=== PATIENT | female | born 1985 | race Two or more races ===

== ENCOUNTER 2017-06-12 05:36 | Emergency (ER) | payer MEDICARE, MEDICAID ==
[~2017-06-12] VITALS: Ht 165.1 cm; Wt 55.0 kg
[2017-06-12] MEDS ORDERED: ONDANSETRON HCL 4MG/2ML VIAL IV STA (06:27)
[2017-06-12] MEDS ORDERED: DICYCLOMINE 10 MG/5 ML ORAL SYR PO STA (06:27)
[2017-06-12] MEDS ORDERED: MAGNESIUM/ALUMINUM HYDROXIDE/SIMETHICONE 30ML UDC PO STA (06:27)
[2017-06-12] MEDS ORDERED: KETOROLAC 30MG/ML VIAL IV STA (06:27)
[2017-06-12] MEDS ORDERED: VISCOUS LIDOCAINE 2% 15 ML UDC PO STA (06:27)
[2017-06-12 06:50] LABS: CLARITY URINE CLEAR (CLEAR); COLOR URINE YELLOW (YELLOW); GLUCOSE URINE NEGATIVE (NEGATIVE); KETONES URINE NEGATIVE (NEGATIVE); LEUKOCYTE ESTERASE URINE NEGATIVE (NEGATIVE); NITRITE URINE NEGATIVE (NEGATIVE); OCCULT BLOOD URINE NEGATIVE (NEGATIVE); PROTEIN URINE NEGATIVE (NEGATIVE); SPECIFIC GRAVITY URINE 1.013 (1.005-1.030); UROBILINOGEN URINE 0.2 E.U./dL (0.2-1.0)
[2017-06-12 07:19] LABS: BASOPHILS % 0.3 % (0.0-2.0); EOSINOPHILS % 2.8 % (0.0-5.0); HEMATOCRIT. 32.3 % (36.0-48.0); HEMOGLOBIN. 11.2 g/dL (12.0-16.0); LYMPHOCYTES % 33.8 % (20.0-50.0); MEAN CORPUSCULAR HEMOGLOBIN 30.9 pg (28.0-32.0); MEAN CORPUSCULAR VOLUME 89.6 fL (81.0-99.0); MEAN PLATELET VOLUME 6.6 fl (7.4-10.4); MONOCYTES % 6.3 % (2.0-8.0); NEUTROPHILS % 56.8 % (40.0-76.0); PLATELET 183 x1000/uL (130-400); RED BLOOD CELL COUNT 3.61 mill/uL (4.2-5.4); RED CELL DISTRIBUTION WIDTH 15.7 % (11.6-14.6)
[2017-06-12 07:33] LABS: CARBON DIOXIDE 28 mEq/L (21-32); CHLORIDE 108 mEq/L (98-107)
[2017-06-12 07:36] LABS: INR 1.1; PROTHROMBIN TIME 11.3 sec (9.4-11.6)
[2017-06-12 07:57] LABS: HCG SCREEN NEGATIVE
[2017-06-12] MEDS ORDERED: MORPHINE SULFATE 4 MG/ML CPJ (NOT FOR IM USE) IV ONE (08:00)
[2017-06-12] MEDS ORDERED: MORPHINE SULFATE 10 MG/ML CPJ IV NR (08:30)
[2017-06-12] MEDS ORDERED: FAMOTIDINE 20MG/2ML VIAL IV ONE (08:30)
[2017-06-12] MEDS ORDERED: DIPHENHYDRAMINE 50MG/ML VIAL IV ONE (09:00)
[2017-06-12 09:45] VITALS: BP 105/69
== END 2017-06-12 09:49 | disposition home or self-care (01) ==
LOC: ER 05:36
DX: K21.9 Gastro-esophageal reflux disease without esophagitis (principal); M25.572 Pain in left ankle and joints of left foot; M25.571 Pain in right ankle and joints of right foot; G43.909 Migraine, unspecified, not intractable, without status migrainosus; Z88.6 Allergy status to analgesic agent; Z88.2 Allergy status to sulfonamides; Z88.8 Allergy status to other drugs, medicaments and biological substances
CPT/HCPCS: 36415; 80053; 81003; 83690; 84703; 85025; 85610; 96374; 96375; 99284; J1200; J1885; J2270; J2405; J3490

== ENCOUNTER 2017-06-14 06:44 | Emergency (ER) | payer MEDICARE, MEDICAID ==
[~2017-06-14] VITALS: Ht 165.1 cm; Wt 50.0 kg
[2017-06-14] MEDS ORDERED: MORPHINE SULFATE 4 MG/ML CPJ (NOT FOR IM USE) IV STA (07:11)
[2017-06-14] MEDS ORDERED: SODIUM CHLORIDE 0.9% 1,000 ML IV ONE (07:11)
[2017-06-14] MEDS ORDERED: ONDANSETRON HCL 4MG/2ML VIAL IV STA (07:11)
[2017-06-14] MEDS ORDERED: MORPHINE SULFATE 10 MG/ML CPJ IV NR (07:45)
[2017-06-14 07:58] LABS: CLARITY URINE CLEAR (CLEAR); COLOR URINE YELLOW (YELLOW); GLUCOSE URINE NEGATIVE (NEGATIVE); KETONES URINE NEGATIVE (NEGATIVE); LEUKOCYTE ESTERASE URINE NEGATIVE (NEGATIVE); NITRITE URINE NEGATIVE (NEGATIVE); OCCULT BLOOD URINE NEGATIVE (NEGATIVE); PH URINE 5.5 (4.5-8.0); PROTEIN URINE NEGATIVE (NEGATIVE); SPECIFIC GRAVITY URINE 1.021 (1.005-1.030); UROBILINOGEN URINE 0.2 E.U./dL (0.2-1.0)
[2017-06-14] MEDS ORDERED: DIPHENHYDRAMINE 50MG/ML VIAL IV ONE (08:00)
[2017-06-14] MEDS ORDERED: FAMOTIDINE 20MG/2ML VIAL IV ONE (08:00)
[2017-06-14 08:08] LABS: BASOPHILS % 0.5 % (0.0-2.0); EOSINOPHILS % 3.8 % (0.0-5.0); HEMATOCRIT. 32.6 % (36.0-48.0); HEMOGLOBIN. 11.1 g/dL (12.0-16.0); LYMPHOCYTES % 34.9 % (20.0-50.0); MEAN CORPUSCULAR HEMOGLOBIN 30.6 pg (28.0-32.0); MEAN CORPUSCULAR VOLUME 89.9 fL (81.0-99.0); MEAN PLATELET VOLUME 6.8 fl (7.4-10.4); MONOCYTES % 6.6 % (2.0-8.0); NEUTROPHILS % 54.2 % (40.0-76.0); PLATELET 193 x1000/uL (130-400); RED BLOOD CELL COUNT 3.62 mill/uL (4.2-5.4); RED CELL DISTRIBUTION WIDTH 16.2 % (11.6-14.6)
[2017-06-14 08:16] LABS: INR 1.1; PARTIAL THROMBOPLASTIN TIME 25.2 sec (23.4-31.0); PROTHROMBIN TIME 10.9 sec (9.4-11.6)
[2017-06-14 08:28] LABS: HCG SCREEN NEGATIVE
[2017-06-14 08:33] LABS: CARBON DIOXIDE 26 mEq/L (21-32); CHLORIDE 108 mEq/L (98-107)
[2017-06-14 09:30] VITALS: BP 110/68
[2017-06-14] MEDS ORDERED: TRAMADOL 50MG TABLET PO ONE (09:30)
== END 2017-06-14 09:49 | disposition left against medical advice (07) ==
LOC: ER 07:15
DX: R10.9 Unspecified abdominal pain (principal); G43.909 Migraine, unspecified, not intractable, without status migrainosus; Z88.6 Allergy status to analgesic agent; Z88.2 Allergy status to sulfonamides; Z88.8 Allergy status to other drugs, medicaments and biological substances
CPT/HCPCS: 36415; 71010; 74176; 80053; 81003; 83690; 84703; 85025; 85610; 85730; 86850; 86900; 86901; 93005; 96361; 96374; 96375; 99285; J1200; J2270; J2405; J3490; J7030

== ENCOUNTER 2017-12-22 18:32 | Emergency (ER) | payer MEDICARE, MEDICAID ==
[~2017-12-22] VITALS: Ht 162.6 cm; Wt 54.0 kg
[2017-12-22 21:38] LABS: CLARITY URINE CLEAR (CLEAR); COLOR URINE YELLOW (YELLOW); KETONES URINE NEGATIVE (NEGATIVE); LEUKOCYTE ESTERASE URINE NEGATIVE (NEGATIVE); NITRITE URINE NEGATIVE (NEGATIVE); OCCULT BLOOD URINE NEGATIVE (NEGATIVE); PH URINE 6.5 (4.5-8.0); PROTEIN URINE NEGATIVE (NEGATIVE); SPECIFIC GRAVITY URINE 1.024 (1.005-1.030); UROBILINOGEN URINE 0.2 E.U./dL (0.2-1.0)
[2017-12-22] MEDS ORDERED: KETOROLAC 30MG/ML VIAL IV STA (22:10)
[2017-12-22] MEDS ORDERED: FAMOTIDINE 20MG/2ML VIAL IV STA (22:10)
[2017-12-22] MEDS ORDERED: ONDANSETRON HCL 4MG/2ML VIAL IV STA (22:10)
[2017-12-22 23:28] LABS: EOSINOPHILS % 0.8 % (0.0-5.0); HEMATOCRIT. 35.6 % (36.0-48.0); HEMOGLOBIN. 11.9 g/dL (12.0-16.0); MEAN CORPUSCULAR HEMOGLOBIN 29.1 pg (28.0-32.0); MEAN CORPUSCULAR VOLUME 87.2 fL (81.0-99.0); MONOCYTES % 3.8 % (2.0-8.0); NEUTROPHILS % 49.4 % (40.0-76.0); PLATELET 375 x1000/uL (130-400); RED BLOOD CELL COUNT 4.08 mill/uL (4.2-5.4); RED CELL DISTRIBUTION WIDTH 18.5 % (11.6-14.6)
[2017-12-22 23:30] LABS: CHLORIDE 105 mEq/L (98-107)
[2017-12-22 23:31] LABS: PROTHROMBIN TIME 10.6 sec (9.4-11.6)
[2017-12-22] MEDS ORDERED: DIPHENHYDRAMINE 50MG/ML VIAL IM ONE (23:45)
[2017-12-23] MEDS ORDERED: MORPHINE SULFATE 10 MG/ML CPJ IM STA (00:09)
[2017-12-23] MEDS ORDERED: LORAZEPAM 2MG/ML CPJ IM ONE (03:00)
[2017-12-23 03:18] VITALS: BP 109/79
== END 2017-12-23 03:18 | disposition home or self-care (01) ==
LOC: ER 18:32
DX: R10.84 Generalized abdominal pain (principal); K59.00 Constipation, unspecified; K62.5 Hemorrhage of anus and rectum; R00.0 Tachycardia, unspecified; Z91.14 Patient's other noncompliance with medication regimen; Z90.49 Acquired absence of other specified parts of digestive tract; Z88.2 Allergy status to sulfonamides
CPT/HCPCS: 36415; 74176; 80053; 81003; 83690; 85025; 85610; 93005; 96372; 96374; 96375; 99285; J1200; J1885; J2060; J2270; J2405

== ENCOUNTER 2018-01-27 04:59 | Emergency (ER) | payer MEDICARE, MEDICAID ==
[~2018-01-27] VITALS: Ht 165.1 cm; Wt 50.0 kg
[2018-01-27] MEDS ORDERED: PANTOPRAZOLE SODIUM 40 MG/VIAL IV STA (06:07)
[2018-01-27] MEDS ORDERED: MORPHINE SULFATE 4 MG/ML CPJ (NOT FOR IM USE) IV STA (06:07)
[2018-01-27] MEDS ORDERED: ONDANSETRON HCL 4MG/2ML VIAL IV STA (06:07)
[2018-01-27] MEDS ORDERED: SODIUM CHLORIDE 0.9% 1,000 ML IV ONE (06:07)
[2018-01-27] MEDS ORDERED: DIPHENHYDRAMINE 50MG/ML VIAL IV ONE ×2 (06:45→10:30)
[2018-01-27 09:24] LABS: BASOPHILS % 0.4 % (0.0-2.0); EOSINOPHILS % 1.9 % (0.0-5.0); HEMATOCRIT. 34.4 % (36.0-48.0); HEMOGLOBIN. 11.7 g/dL (12.0-16.0); LYMPHOCYTES % 43.2 % (20.0-50.0); MEAN CORPUSCULAR VOLUME 90.9 fL (81.0-99.0); MEAN PLATELET VOLUME 6.8 fl (7.4-10.4); MONOCYTES % 4.9 % (2.0-8.0); NEUTROPHILS % 49.6 % (40.0-76.0); PLATELET 173 x1000/uL (130-400); RED BLOOD CELL COUNT 3.78 mill/uL (4.2-5.4); RED CELL DISTRIBUTION WIDTH 14.8 % (11.6-14.6)
[2018-01-27 09:27] LABS: CLARITY URINE CLEAR (CLEAR); COLOR URINE YELLOW (YELLOW); KETONES URINE NEGATIVE (NEGATIVE); LEUKOCYTE ESTERASE URINE NEGATIVE (NEGATIVE); NITRITE URINE NEGATIVE (NEGATIVE); OCCULT BLOOD URINE NEGATIVE (NEGATIVE); PH URINE 5.5 (4.5-8.0); PROTEIN URINE NEGATIVE (NEGATIVE); SPECIFIC GRAVITY URINE 1.009 (1.005-1.030); UROBILINOGEN URINE 0.2 E.U./dL (0.2-1.0)
[2018-01-27 09:30] LABS: CHLORIDE 110 mEq/L (98-107)
[2018-01-27 09:32] LABS: INR 1.1; PROTHROMBIN TIME 11.6 sec (9.4-11.6)
[2018-01-27] MEDS ORDERED: MORPHINE SULFATE 2 MG/ML CPJ (NOT FOR IM USE) IV ONE (09:45)
[2018-01-27] MEDS ORDERED: DIPHENHYDRAMINE 50MG/ML VIAL ONE (10:27)
[2018-01-27 10:40] VITALS: BP 113/90
== END 2018-01-27 11:00 | disposition home or self-care (01) ==
LOC: ER 04:59
DX: R10.13 Epigastric pain (principal); R07.89 Other chest pain; K86.1 Other chronic pancreatitis; D64.9 Anemia, unspecified; M32.9 Systemic lupus erythematosus, unspecified; G43.909 Migraine, unspecified, not intractable, without status migrainosus; Z88.2 Allergy status to sulfonamides; Z88.6 Allergy status to analgesic agent; Z90.49 Acquired absence of other specified parts of digestive tract
CPT/HCPCS: 36415; 80053; 81003; 81025; 83690; 83880; 84484; 85025; 85610; 93005; 96361; 96374; 96375; 96376; 99285; C1893; C9113; J1200; J2270; J2405; J7030

== ENCOUNTER 2018-03-13 23:24 | Emergency (ER) | payer MEDICARE, MEDICAID ==
[~2018-03-13] VITALS: Ht 165.1 cm; Wt 53.0 kg
[2018-03-14] MEDS ORDERED: ONDANSETRON HCL 4MG/2ML VIAL IV STA (02:11)
[2018-03-14] MEDS ORDERED: MAGNESIUM/ALUMINUM HYDROXIDE/SIMETHICONE 30ML UDC PO STA (02:11)
[2018-03-14] MEDS ORDERED: FAMOTIDINE 20MG/2ML VIAL IV ONE (02:15)
[2018-03-14 02:57] LABS: BASOPHILS % 0.3 % (0.0-2.0); EOSINOPHILS % 1.7 % (0.0-5.0); HEMOGLOBIN. 10.9 g/dL (12.0-16.0); LYMPHOCYTES % 55.3 % (20.0-50.0); MEAN CORPUSCULAR VOLUME 90.4 fL (81.0-99.0); MONOCYTES % 6.9 % (2.0-8.0); NEUTROPHILS % 35.8 % (40.0-76.0); PLATELET 175 x1000/uL (130-400); RED BLOOD CELL COUNT 3.32 mill/uL (4.2-5.4)
[2018-03-14 02:59] LABS: CLARITY URINE CLEAR (CLEAR); COLOR URINE YELLOW (YELLOW); KETONES URINE NEGATIVE (NEGATIVE); LEUKOCYTE ESTERASE URINE NEGATIVE (NEGATIVE); NITRITE URINE NEGATIVE (NEGATIVE); OCCULT BLOOD URINE NEGATIVE (NEGATIVE); PROTEIN URINE NEGATIVE (NEGATIVE); SPECIFIC GRAVITY URINE 1.011 (1.005-1.030); UROBILINOGEN URINE 0.2 E.U./dL (0.2-1.0)
[2018-03-14 02:59] LABS: CHLORIDE 111 mEq/L (98-107)
[2018-03-14] MEDS ORDERED: MORPHINE SULFATE 4 MG/ML CPJ (NOT FOR IM USE) IV ONE ×2 (03:00→04:00)
[2018-03-14 03:02] LABS: INR 1.1; PROTHROMBIN TIME 11.1 sec (9.1-11.1)
[2018-03-14 03:24] LABS: MEAN CORPUSCULAR HEMOGLOBIN 31.3 pg (28.0-32.0)
[2018-03-14] MEDS ORDERED: SODIUM CHLORIDE 0.9% 500 ML IV ONE (03:30)
[2018-03-14] MEDS ORDERED: DIPHENHYDRAMINE 50MG/ML VIAL IV ONE ×2 (03:45→04:00)
[2018-03-14 04:30] VITALS: BP 112/72
== END 2018-03-14 04:30 | disposition home or self-care (01) ==
LOC: ER 23:59
DX: R10.13 Epigastric pain (principal); R11.0 Nausea; G43.909 Migraine, unspecified, not intractable, without status migrainosus; K27.9 Peptic ulcer, site unspecified, unspecified as acute or chronic, without hemorrhage or perforation; Z88.2 Allergy status to sulfonamides; Z88.6 Allergy status to analgesic agent; Z88.8 Allergy status to other drugs, medicaments and biological substances
CPT/HCPCS: 36415; 80053; 81003; 83690; 85025; 85610; 96374; 96375; 96376; 99284; J1200; J2270; J2405; J3490; J7040

== ENCOUNTER 2018-03-25 02:52 | Emergency (ER) | payer MEDICARE, MEDICAID ==
[~2018-03-25] VITALS: Ht 165.1 cm; Wt 52.5 kg
[2018-03-25] MEDS ORDERED: SODIUM CHLORIDE 0.9% 1,000 ML IV ONE (06:36)
[2018-03-25] MEDS ORDERED: ONDANSETRON HCL 4MG/2ML VIAL IV STA (06:36)
[2018-03-25] MEDS ORDERED: MORPHINE SULFATE 4 MG/ML CPJ (NOT FOR IM USE) IV STA (06:36)
[2018-03-25] MEDS ORDERED: DIPHENHYDRAMINE 50MG/ML VIAL IV ONE ×3 (06:45→12:15)
[2018-03-25 07:19] LABS: CLARITY URINE CLEAR (CLEAR); COLOR URINE YELLOW (YELLOW); KETONES URINE NEGATIVE (NEGATIVE); LEUKOCYTE ESTERASE URINE NEGATIVE (NEGATIVE); NITRITE URINE NEGATIVE (NEGATIVE); OCCULT BLOOD URINE NEGATIVE (NEGATIVE); PH URINE 6.5 (4.5-8.0); PROTEIN URINE NEGATIVE (NEGATIVE); SPECIFIC GRAVITY URINE 1.027 (1.005-1.030); UROBILINOGEN URINE 0.2 E.U./dL (0.2-1.0)
[2018-03-25 07:52] LABS: BASOPHILS % 0.5 % (0.0-2.0); EOSINOPHILS % 1.8 % (0.0-5.0); HEMATOCRIT. 35.2 % (36.0-48.0); HEMOGLOBIN. 12.2 g/dL (12.0-16.0); LYMPHOCYTES % 42.1 % (20.0-50.0); MEAN CORPUSCULAR HEMOGLOBIN 31.4 pg (28.0-32.0); MONOCYTES % 8.8 % (2.0-8.0); NEUTROPHILS % 46.8 % (40.0-76.0); RED BLOOD CELL COUNT 3.87 mill/uL (4.2-5.4); RED CELL DISTRIBUTION WIDTH 13.2 % (11.6-14.6)
[2018-03-25 07:55] LABS: CHLORIDE 110 mEq/L (98-107)
[2018-03-25 08:35] LABS: PLATELET 161 x1000/uL (130-400)
[2018-03-25] MEDS ORDERED: MORPHINE SULFATE 4 MG/ML CPJ (NOT FOR IM USE) IV ONE (09:15)
[2018-03-25] MEDS ORDERED: LORAZEPAM 2MG/ML CPJ IV ONE (11:00)
[2018-03-25] MEDS ORDERED: MORPHINE SULFATE 2 MG/ML CPJ (NOT FOR IM USE) IV ONE (12:15)
[2018-03-25 12:36] VITALS: BP 117/84
[2018-03-26 14:47] LABS: *AMPHETAMINES SCREEN URINE NEGATIVE (NEGATIVE); *BARBITURATES SCREEN URINE NEGATIVE (NEGATIVE); *BENZODIAZEPINES SCREEN URINE NEGATIVE (NEGATIVE); *COCAINE SCREEN URINE NEGATIVE (NEGATIVE)
[2018-03-26 14:48] LABS: METHADONE URINE SCREEN NEGATIVE (NEGATIVE)
[2018-03-26 14:49] LABS: CANNABINOID URINE SCREEN NEGATIVE (NEGATIVE); PHENCYCLIDINE URINE SCREEN NEGATIVE (NEGATIVE)
[2018-03-26 14:56] LABS: OPIATES URINE SCREEN NEGATIVE (NEGATIVE)
== END 2018-03-25 12:52 | disposition home or self-care (01) ==
LOC: ER 02:52
DX: K85.90 Acute pancreatitis without necrosis or infection, unspecified (principal); G43.909 Migraine, unspecified, not intractable, without status migrainosus; Z88.2 Allergy status to sulfonamides; Z88.6 Allergy status to analgesic agent; Z91.040 Latex allergy status; Z88.8 Allergy status to other drugs, medicaments and biological substances; Z90.49 Acquired absence of other specified parts of digestive tract; Z98.890 Other specified postprocedural states
CPT/HCPCS: 36415; 74176; 76705; 80053; 80305; 81003; 81025; 83690; 85025; 96361; 96374; 96375; 96376; 99285; J1200; J2060; J2270; J2405; J7030; J7040

== ENCOUNTER 2018-03-26 11:44 | Emergency (ER) | payer MEDICARE, MEDICAID ==
[~2018-03-26] VITALS: Ht 165.1 cm; Wt 53.0 kg
[2018-03-26] MEDS ORDERED: FLUORESCEIN SODIUM 1MG/STRIP OP ONE (12:15)
[2018-03-26] MEDS ORDERED: TETRACAINE 0.5% OPHTH DROPS 4ML OP ONE (12:15)
[2018-03-26] MEDS ORDERED: SODIUM CHLORIDE 0.9% 1,000 ML IV ONE (12:21)
[2018-03-26] MEDS ORDERED: LORAZEPAM 2MG/ML CPJ IV ONE (12:30)
[2018-03-26] MEDS ORDERED: ONDANSETRON HCL 4MG/2ML VIAL IV ONE (12:30)
[2018-03-26] MEDS ORDERED: DIPHENHYDRAMINE 50MG/ML VIAL IV ONE ×2 (12:30→14:15)
[2018-03-26] MEDS ORDERED: KETOROLAC 30MG/ML VIAL IV ONE (13:00)
[2018-03-26 13:03] LABS: BASOPHILS % 0.5 % (0.0-2.0); EOSINOPHILS % 1.3 % (0.0-5.0); HEMATOCRIT. 32.7 % (36.0-48.0); HEMOGLOBIN. 11.4 g/dL (12.0-16.0); LYMPHOCYTES % 31.6 % (20.0-50.0); MEAN CORPUSCULAR HEMOGLOBIN 31.3 pg (28.0-32.0); MEAN CORPUSCULAR VOLUME 89.8 fL (81.0-99.0); MEAN PLATELET VOLUME 6.7 fl (7.4-10.4); MONOCYTES % 7.9 % (2.0-8.0); NEUTROPHILS % 58.7 % (40.0-76.0); PLATELET 171 x1000/uL (130-400); RED BLOOD CELL COUNT 3.64 mill/uL (4.2-5.4); RED CELL DISTRIBUTION WIDTH 12.7 % (11.6-14.6)
[2018-03-26 13:04] LABS: CLARITY URINE CLEAR (CLEAR); COLOR URINE YELLOW (YELLOW); KETONES URINE NEGATIVE (NEGATIVE); LEUKOCYTE ESTERASE URINE NEGATIVE (NEGATIVE); NITRITE URINE NEGATIVE (NEGATIVE); OCCULT BLOOD URINE NEGATIVE (NEGATIVE); PH URINE 5.5 (4.5-8.0); PROTEIN URINE NEGATIVE (NEGATIVE); SPECIFIC GRAVITY URINE 1.006 (1.005-1.030); UROBILINOGEN URINE 0.2 E.U./dL (0.2-1.0)
[2018-03-26 13:06] LABS: CHLORIDE 108 mEq/L (98-107)
[2018-03-26 13:07] LABS: INR 1.1
[2018-03-26] MEDS ORDERED: MORPHINE SULFATE 4 MG/ML CPJ (NOT FOR IM USE) IV ONE (13:30)
[2018-03-26] MEDS ORDERED: FAMOTIDINE 20MG/2ML VIAL IV STA (14:06)
[2018-03-26 15:28] VITALS: BP 111/63
== END 2018-03-26 15:28 | disposition home or self-care (01) ==
LOC: ER 12:52
DX: R10.84 Generalized abdominal pain (principal); R11.2 Nausea with vomiting, unspecified; G43.909 Migraine, unspecified, not intractable, without status migrainosus; Z88.8 Allergy status to other drugs, medicaments and biological substances; Z88.2 Allergy status to sulfonamides; Z88.6 Allergy status to analgesic agent; Z91.040 Latex allergy status; Z90.49 Acquired absence of other specified parts of digestive tract; Z87.19 Personal history of other diseases of the digestive system
CPT/HCPCS: 36415; 80053; 81003; 81025; 83690; 85025; 85610; 96361; 96374; 96375; 96376; 99285; J1200; J2060; J2270; J2405; J3490; J7030; J1885

== ENCOUNTER 2018-03-31 10:59 | Emergency (ER) | payer MEDICARE, MEDICAID ==
[~2018-03-31] VITALS: Ht 165.1 cm; Wt 52.0 kg
[2018-03-31] MEDS ORDERED: ONDANSETRON HCL 4MG/2ML INJ IV STA (11:34)
[2018-03-31] MEDS ORDERED: SODIUM CHLORIDE 0.9% 1,000 ML IV ONE ×2 (11:34→14:25)
[2018-03-31] MEDS ORDERED: FAMOTIDINE 20MG/2ML VIAL IV STA (11:34)
[2018-03-31] MEDS ORDERED: MORPHINE SULFATE 4 MG/ML CPJ (NOT FOR IM USE) IV STA (11:34)
[2018-03-31 12:19] LABS: BASOPHILS % 0.6 % (0.0-2.0); EOSINOPHILS % 1.9 % (0.0-5.0); HEMATOCRIT. 31.2 % (36.0-48.0); HEMOGLOBIN. 10.8 g/dL (12.0-16.0); LYMPHOCYTES % 36.8 % (20.0-50.0); MEAN CORPUSCULAR HEMOGLOBIN 31.1 pg (28.0-32.0); MEAN CORPUSCULAR VOLUME 89.9 fL (81.0-99.0); MEAN PLATELET VOLUME 6.6 fl (7.4-10.4); MONOCYTES % 9.7 % (2.0-8.0); PLATELET 152 x1000/uL (130-400); RED BLOOD CELL COUNT 3.47 mill/uL (4.2-5.4); RED CELL DISTRIBUTION WIDTH 13.5 % (11.6-14.6)
[2018-03-31 12:19] LABS: CLARITY URINE CLEAR (CLEAR); COLOR URINE YELLOW (YELLOW); KETONES URINE NEGATIVE (NEGATIVE); LEUKOCYTE ESTERASE URINE NEGATIVE (NEGATIVE); NITRITE URINE NEGATIVE (NEGATIVE); OCCULT BLOOD URINE NEGATIVE (NEGATIVE); PROTEIN URINE NEGATIVE (NEGATIVE); SPECIFIC GRAVITY URINE 1.008 (1.005-1.030); UROBILINOGEN URINE 0.2 E.U./dL (0.2-1.0)
[2018-03-31 12:22] LABS: CHLORIDE 108 mEq/L (98-107)
[2018-03-31] MEDS ORDERED: DIPHENHYDRAMINE 50MG/ML VIAL IV ONE ×2 (12:30→15:00)
[2018-03-31 12:33] LABS: HCG SCREEN NEGATIVE
[2018-03-31] MEDS ORDERED: KETOROLAC 15MG/ML VIAL IV ONE (13:30)
[2018-03-31] MEDS ORDERED: LORAZEPAM 2MG/ML CPJ IV ONE (13:30)
[2018-03-31] MEDS ORDERED: MORPHINE SULFATE 4 MG/ML CPJ (NOT FOR IM USE) IV ONE (14:30)
[2018-03-31 15:17] VITALS: BP 101/78
== END 2018-03-31 17:02 | disposition home or self-care (01) ==
LOC: ER 12:31
DX: G89.29 Other chronic pain (principal); R10.13 Epigastric pain; H10.023 Other mucopurulent conjunctivitis, bilateral; G43.909 Migraine, unspecified, not intractable, without status migrainosus; D72.819 Decreased white blood cell count, unspecified; R03.0 Elevated blood-pressure reading, without diagnosis of hypertension; K90.9 Intestinal malabsorption, unspecified; Z88.2 Allergy status to sulfonamides; Z88.6 Allergy status to analgesic agent; Z91.040 Latex allergy status; Z90.49 Acquired absence of other specified parts of digestive tract
CPT/HCPCS: 36415; 80053; 81003; 81025; 83690; 84703; 85025; 87070; 87430; 96361; 96374; 96375; 96376; 99284; J1200; J1885; J2060; J2270; J2405; J3490; J7030

== ENCOUNTER 2018-04-01 12:31 | Emergency (ER) | payer MEDICARE, MEDICAID ==
[~2018-04-01] VITALS: Ht 170.2 cm; Wt 52.0 kg
[2018-04-01] MEDS ORDERED: SODIUM CHLORIDE 0.9% 1,000 ML IV ONE (12:44)
[2018-04-01] MEDS ORDERED: KETOROLAC 15MG/ML VIAL IV ONE (14:30)
[2018-04-01] MEDS ORDERED: PROCHLORPERAZINE 10MG/2ML VIAL IV ONE (14:30)
[2018-04-01] MEDS ORDERED: DIPHENHYDRAMINE 50MG/ML VIAL IV ONE (14:30)
[2018-04-01 14:37] LABS: CLARITY URINE CLEAR (CLEAR); COLOR URINE YELLOW (YELLOW); KETONES URINE 1+ (NEGATIVE); LEUKOCYTE ESTERASE URINE NEGATIVE (NEGATIVE); NITRITE URINE NEGATIVE (NEGATIVE); OCCULT BLOOD URINE NEGATIVE (NEGATIVE); PH URINE 6.5 (4.5-8.0); PROTEIN URINE NEGATIVE (NEGATIVE); SPECIFIC GRAVITY URINE 1.014 (1.005-1.030); UROBILINOGEN URINE 0.2 E.U./dL (0.2-1.0)
[2018-04-01] MEDS ORDERED: LORAZEPAM 2MG/ML CPJ IV ONE (14:45)
[2018-04-01] MEDS ORDERED: ONDANSETRON HCL 4MG/2ML INJ IV ONE (16:15)
[2018-04-01] MEDS ORDERED: FAMOTIDINE 20MG/2ML VIAL IV ONE (16:15)
[2018-04-01 16:44] LABS: BASOPHILS % 0.3 % (0.0-2.0); EOSINOPHILS % 0.2 % (0.0-5.0); HEMATOCRIT. 31.2 % (36.0-48.0); LYMPHOCYTES % 15.2 % (20.0-50.0); MEAN CORPUSCULAR HEMOGLOBIN 31.6 pg (28.0-32.0); MEAN PLATELET VOLUME 7.2 fl (7.4-10.4); NEUTROPHILS % 80.3 % (40.0-76.0); PLATELET 157 x1000/uL (130-400); RED BLOOD CELL COUNT 3.47 mill/uL (4.2-5.4); RED CELL DISTRIBUTION WIDTH 13.2 % (11.6-14.6)
[2018-04-01 16:48] LABS: CHLORIDE 107 mEq/L (98-107); INR 1.1; PROTHROMBIN TIME 10.7 sec (9.1-11.1)
[2018-04-01 16:54] LABS: ETHANOL BLOOD < 10 mg/dL
[2018-04-01 17:08] LABS: HCG SCREEN NEGATIVE
[2018-04-01 17:22] LABS: HEPATITIS B SURFACE ANTIGEN NEGATIVE
[2018-04-01] MEDS ORDERED: MORPHINE SULFATE 4 MG/ML CPJ (NOT FOR IM USE) IV ONE (17:45)
[2018-04-01 17:50] LABS: HEPATITIS B CORE AB IGM NEGATIVE
[2018-04-01 17:52] LABS: HEPATITIS A AB IGM NEGATIVE (NEGATIVE)
[2018-04-01 18:31] VITALS: BP 99/60
[2018-04-01] MEDS ORDERED: HYDROCORTISONE 2.5% OINT 20GM TOP SCH (19:00)
== END 2018-04-01 20:40 | disposition home or self-care (01) ==
LOC: ER 13:14
DX: R10.13 Epigastric pain (principal); R11.2 Nausea with vomiting, unspecified; D72.819 Decreased white blood cell count, unspecified; D64.9 Anemia, unspecified; R51 Headache; G43.909 Migraine, unspecified, not intractable, without status migrainosus; Z90.49 Acquired absence of other specified parts of digestive tract; Z88.2 Allergy status to sulfonamides; Z88.6 Allergy status to analgesic agent; Z91.040 Latex allergy status; Z88.8 Allergy status to other drugs, medicaments and biological substances
CPT/HCPCS: 36415; 80053; 81003; 83690; 84703; 85025; 85610; 86703; 96361; 96374; 96375; 99285; G0482; J0780; J1200; J2060; J2270; J2405; J3490; J7030; 86705; 86709; 86803; 87340; J1885

== ENCOUNTER 2018-04-07 12:39 | Emergency (ER) | payer MEDICARE, MEDICAID ==
[~2018-04-07] VITALS: Ht 160 cm; Wt 55.0 kg
[2018-04-07 12:55] VITALS: BP 130/85
[2018-04-07 13:31] LABS: BASOPHILS % 0.8 % (0.0-2.0); EOSINOPHILS % 1.4 % (0.0-5.0); HEMATOCRIT. 34.9 % (36.0-48.0); HEMOGLOBIN. 11.7 g/dL (12.0-16.0); LYMPHOCYTES % 31.5 % (20.0-50.0); MEAN CORPUSCULAR HEMOGLOBIN 30.9 pg (28.0-32.0); MEAN CORPUSCULAR VOLUME 92.3 fL (81.0-99.0); MONOCYTES % 4.9 % (2.0-8.0); NEUTROPHILS % 61.4 % (40.0-76.0); RED BLOOD CELL COUNT 3.78 mill/uL (4.2-5.4); RED CELL DISTRIBUTION WIDTH 13.5 % (11.6-14.6)
[2018-04-07 13:37] LABS: CHLORIDE 106 mEq/L (98-107)
[2018-04-07 13:40] LABS: INR 1.1; PROTHROMBIN TIME 10.7 sec (9.1-11.1)
[2018-04-07 14:13] LABS: MEAN PLATELET VOLUME 7.5 fl (7.4-10.4); PLATELET 214 x1000/uL (130-400)
[2018-04-07 14:14] LABS: PLATELET ESTIMATE NORMAL
[2018-04-07] MEDS ORDERED: FAMOTIDINE 20MG TABLET PO ONE (14:45)
[2018-04-07] MEDS ORDERED: LORAZEPAM 1MG TABLET PO ONE (14:45)
[2018-04-07] MEDS ORDERED: LORAZEPAM 2MG/ML CPJ IM ONE (15:00)
== END 2018-04-07 18:53 | disposition home or self-care (01) ==
LOC: ER 14:56
DX: R10.30 Lower abdominal pain, unspecified (principal); F41.9 Anxiety disorder, unspecified; G43.909 Migraine, unspecified, not intractable, without status migrainosus; Z76.5 Malingerer [conscious simulation]; Z88.2 Allergy status to sulfonamides; Z88.8 Allergy status to other drugs, medicaments and biological substances; Z88.6 Allergy status to analgesic agent; Z91.040 Latex allergy status; Z90.49 Acquired absence of other specified parts of digestive tract
CPT/HCPCS: 36415; 80053; 83690; 85025; 85610; 96372; 99284; J2060

== ENCOUNTER 2018-11-10 16:03 | Emergency (ER) | payer MEDICARE, MEDICAID ==
[~2018-11-10] VITALS: Ht 165.1 cm; Wt 51.0 kg
[2018-11-10] MEDS ORDERED: ONDANSETRON HCL 4MG/2ML INJ IV STA (16:53)
[2018-11-10] MEDS ORDERED: MORPHINE SULFATE 4 MG/ML CPJ (NOT FOR IM USE) IV STA (16:53)
[2018-11-10] MEDS ORDERED: MAGNESIUM/ALUMINUM HYDROXIDE/SIMETHICONE 30ML UDC PO ONE (17:00)
[2018-11-10 17:05] LABS: HEMATOCRIT. 36.1 % (36.0-48.0); HEMOGLOBIN. 12.1 g/dL (12.0-16.0); MEAN CORPUSCULAR HEMOGLOBIN 31.1 pg (28.0-32.0); PLATELET 203 x1000/uL (130-400); RED BLOOD CELL COUNT 3.88 mill/uL (4.2-5.4); RED CELL DISTRIBUTION WIDTH 15.2 % (11.6-14.6)
[2018-11-10 17:07] LABS: CHLORIDE 110 mEq/L (98-107)
[2018-11-10 17:22] LABS: CLARITY URINE CLEAR (CLEAR); COLOR URINE YELLOW (YELLOW); KETONES URINE NEGATIVE (NEGATIVE); LEUKOCYTE ESTERASE URINE NEGATIVE (NEGATIVE); NITRITE URINE NEGATIVE (NEGATIVE); OCCULT BLOOD URINE NEGATIVE (NEGATIVE); PH URINE 5.5 (4.5-8.0); PROTEIN URINE NEGATIVE (NEGATIVE); SPECIFIC GRAVITY URINE 1.007 (1.005-1.030); UROBILINOGEN URINE 0.2 E.U./dL (0.2-1.0)
[2018-11-10 17:30] LABS: PLATELET ESTIMATE NORMAL
[2018-11-10] MEDS ORDERED: DIPHENHYDRAMINE 50MG/ML VIAL IV ONE (17:45)
[2018-11-10] MEDS ORDERED: FAMOTIDINE 20MG/2ML VIAL IV ONE (17:45)
[2018-11-10] MEDS ORDERED: MORPHINE SULFATE 4 MG/ML CPJ (NOT FOR IM USE) IV ONE (18:00)
[2018-11-10 19:41] VITALS: BP 108/64
[2018-11-10] MEDS ORDERED: IOHEXOL-300 100 ML BOTTLE ONE (20:20)
== END 2018-11-10 20:06 | disposition home or self-care (01) ==
LOC: ER 16:03
DX: R10.13 Epigastric pain (principal); R07.89 Other chest pain; F68.10 Factitious disorder imposed on self, unspecified; I25.2 Old myocardial infarction; G89.4 Chronic pain syndrome; Z87.442 Personal history of urinary calculi; Z98.890 Other specified postprocedural states; Z90.49 Acquired absence of other specified parts of digestive tract; Z88.5 Allergy status to narcotic agent; Z88.2 Allergy status to sulfonamides; Z88.6 Allergy status to analgesic agent; Z91.040 Latex allergy status
CPT/HCPCS: 36415; 71045; 74177; 80053; 81003; 81025; 83690; 83880; 84484; 85025; 85379; 93005; 96374; 96375; 96376; 99284; J1200; J2270; J2405; J3490; Q9967

== ENCOUNTER 2018-12-29 11:31 | Emergency (ER) | payer MEDICARE, MEDICAID ==
[~2018-12-29] VITALS: Ht 165.1 cm; Wt 50.0 kg
[2018-12-29] MEDS ORDERED: SODIUM CHLORIDE 0.9% 1,000 ML IV ONE (16:34)
[2018-12-29] MEDS ORDERED: MORPHINE SULFATE 4 MG/ML CPJ (NOT FOR IM USE) IV STA (16:34)
[2018-12-29] MEDS ORDERED: ONDANSETRON HCL 4MG/2ML INJ IV STA (16:34)
[2018-12-29] MEDS ORDERED: CEFTRIAXONE 2 G PREMIX 50 ML IV ONE (16:45)
[2018-12-29] MEDS ORDERED: DIPHENHYDRAMINE 25MG CAPSULE PO ONE (16:45)
[2018-12-29 16:54] LABS: CLARITY URINE CLEAR (CLEAR); COLOR URINE YELLOW (YELLOW); KETONES URINE NEGATIVE (NEGATIVE); LEUKOCYTE ESTERASE URINE NEGATIVE (NEGATIVE); NITRITE URINE NEGATIVE (NEGATIVE); OCCULT BLOOD URINE TRACE (NEGATIVE); PROTEIN URINE NEGATIVE (NEGATIVE); SPECIFIC GRAVITY URINE 1.023 (1.005-1.030); UROBILINOGEN URINE 0.2 E.U./dL (0.2-1.0)
[2018-12-29 17:17] LABS: BASOPHILS % 0.9 % (0.0-2.0); EOSINOPHILS % 0.6 % (0.0-5.0); HEMATOCRIT. 38.4 % (36.0-48.0); HEMOGLOBIN. 13.1 g/dL (12.0-16.0); LYMPHOCYTES % 30.5 % (20.0-50.0); MEAN CORPUSCULAR HEMOGLOBIN 31.9 pg (28.0-32.0); MEAN CORPUSCULAR VOLUME 93.3 fL (81.0-99.0); MEAN PLATELET VOLUME 6.6 fl (7.4-10.4); PLATELET 242 x1000/uL (130-400); RED BLOOD CELL COUNT 4.12 mill/uL (4.2-5.4); RED CELL DISTRIBUTION WIDTH 13.9 % (11.6-14.6)
[2018-12-29 17:21] LABS: CHLORIDE 106 mEq/L (98-107)
[2018-12-29 17:24] LABS: PROTHROMBIN TIME 10.7 sec (9.6-11.0)
[2018-12-29] MEDS ORDERED: DIPHENHYDRAMINE 50MG/ML VIAL IV ONE (17:30)
[2018-12-29 18:50] VITALS: BP 121/75
== END 2018-12-29 18:50 | disposition left against medical advice (07) ==
LOC: ER 11:31
DX: R10.31 Right lower quadrant pain (principal); R30.0 Dysuria; G89.29 Other chronic pain; R31.29 Other microscopic hematuria; Z88.5 Allergy status to narcotic agent; Z88.2 Allergy status to sulfonamides; Z91.040 Latex allergy status; Z90.49 Acquired absence of other specified parts of digestive tract; G43.909 Migraine, unspecified, not intractable, without status migrainosus
CPT/HCPCS: 36415; 76770; 80053; 81003; 81025; 83690; 85025; 85610; 87040; 87086; 96365; 96366; 96375; 99284; J0696; J1200; J2270; J2405; J7030

== ENCOUNTER 2020-02-20 21:26 | Inpatient (IN) | payer MEDICARE, MEDICAID ==
[~2020-02-20] VITALS: Ht 165.1 cm; Wt 59.0 kg
[~2020-02-20 21:26] MED LIST: BENADRYL IV; DIAZEPAM IV; LORA2VIA34 IV; ZOFRAN IV
[2020-02-20] MEDS ORDERED: MORPHINE SULFATE 4 MG/ML CPJ (NOT FOR IM USE) IV STA (23:17)
[2020-02-20] MEDS ORDERED: SODIUM CHLORIDE 0.9% 1,000 ML IV ONE (23:17)
[2020-02-20] MEDS ORDERED: ONDANSETRON HCL 4MG/2ML INJ IV STA (23:17)
[2020-02-20 23:52] LABS: CLARITY URINE CLEAR (CLEAR); COLOR URINE YELLOW (YELLOW); KETONES URINE NEGATIVE (NEGATIVE); LEUKOCYTE ESTERASE URINE NEGATIVE (NEGATIVE); NITRITE URINE NEGATIVE (NEGATIVE); OCCULT BLOOD URINE NEGATIVE (NEGATIVE); PH URINE 8.5 (4.5-8.0); PROTEIN URINE NEGATIVE (NEGATIVE); UROBILINOGEN URINE 0.2 E.U./dL (0.2-1.0)
[2020-02-20 23:57] LABS: BASOPHILS % 0.5 % (0.0-2.0); EOSINOPHILS % 4.4 % (0.0-5.0); HEMATOCRIT. 36.8 % (36.0-48.0); HEMOGLOBIN. 12.4 g/dL (12.0-16.0); LYMPHOCYTES % 24.2 % (20.0-50.0); MEAN CORPUSCULAR HEMOGLOBIN 29.1 pg (28.0-32.0); MEAN CORPUSCULAR VOLUME 86.6 fL (81.0-99.0); MEAN PLATELET VOLUME 7.4 fl (7.4-10.4); MONOCYTES % 6.6 % (2.0-8.0); NEUTROPHILS % 64.3 % (40.0-76.0); PLATELET 211 x1000/uL (130-400); RED BLOOD CELL COUNT 4.25 mill/uL (4.2-5.4); RED CELL DISTRIBUTION WIDTH 14.5 % (11.6-14.6)
[2020-02-21 00:05] LABS: CHLORIDE 106 mEq/L (98-107); HCG SCREEN NEGATIVE
[2020-02-21 00:09] LABS: ETHANOL BLOOD < 10 mg/dL
[2020-02-21 00:35] LABS: *COCAINE SCREEN URINE NEGATIVE (NEGATIVE); CANNABINOID URINE SCREEN NEGATIVE (NEGATIVE); METHADONE URINE SCREEN NEGATIVE (NEGATIVE); PHENCYCLIDINE URINE SCREEN NEGATIVE (NEGATIVE)
[2020-02-21 00:36] LABS: *AMPHETAMINES SCREEN URINE NEGATIVE (NEGATIVE); *BARBITURATES SCREEN URINE NEGATIVE (NEGATIVE); *BENZODIAZEPINES SCREEN URINE NEGATIVE (NEGATIVE)
[2020-02-21 00:41] LABS: OPIATES URINE SCREEN PRESUMTIVE POSITIVE (NEGATIVE)
[2020-02-21] MEDS ORDERED: LORAZEPAM 2MG/ML CPJ IV ONE (01:15)
[2020-02-21 02:05] VITALS: BP 107/71
[2020-02-21] MEDS ORDERED: HYDROMORPHONE HCL/PF 2MG/ML CPJ IM PRN (03:00)
[2020-02-21 04:00] VITALS: BP 107/71
[2020-02-21] MEDS ORDERED: DIPHENHYDRAMINE 50MG/ML VIAL IV NR (05:00)
[2020-02-21] MEDS: SODIUM CHLORIDE 0.9% 1,000 ML IV SCH (05:18)
[2020-02-21 06:50] LABS: *AMPHETAMINES SCREEN URINE NEGATIVE (NEGATIVE); *BARBITURATES SCREEN URINE NEGATIVE (NEGATIVE); *BENZODIAZEPINES SCREEN URINE NEGATIVE (NEGATIVE); *COCAINE SCREEN URINE NEGATIVE (NEGATIVE); METHADONE URINE SCREEN NEGATIVE (NEGATIVE)
[2020-02-21 06:51] LABS: CANNABINOID URINE SCREEN NEGATIVE (NEGATIVE); PHENCYCLIDINE URINE SCREEN NEGATIVE (NEGATIVE)
[2020-02-21] MEDS ORDERED: HYDROMORPHONE HCL/PF 2MG/ML CPJ IV PRN ×2 (07:45→10:00)
[2020-02-21] MEDS ORDERED: KETOROLAC 30MG/ML VIAL IV PRN (07:45)
[2020-02-21] MEDS ORDERED: LORA2TAB95 IV (07:48)
[2020-02-21 07:50] LABS: OPIATES URINE SCREEN PRESUMTIVE POSITIVE (NEGATIVE)
[2020-02-21 08:00] VITALS: BP 120/81
[2020-02-21] MEDS: FAMOTIDINE 20MG/2ML VIAL IV SCH ×2 (09:37→20:42)
[2020-02-21] MEDS ORDERED: DIPHENHYDRAMINE 12.5MG/5ML UDC PO PRN (11:30)
[2020-02-21] MEDS ORDERED: TRAMADOL 50MG TABLET PO PRN (11:30)
[2020-02-21] MEDS ORDERED: DIPHENHYDRAMINE 25MG CAPSULE PO PRN (11:30)
[2020-02-21 12:00] VITALS: BP 104/74
[2020-02-21] MEDS ORDERED: HYDROMORPHONE HCL/PF 2MG/ML CPJ IV SCH (12:15)
[2020-02-21] MEDS ORDERED: KETOROLAC 15MG/ML VIAL IV PRN (14:15)
[2020-02-21] MEDS: DIPHENHYDRAMINE 50MG/ML VIAL IV PRN ×2 (14:59→22:29)
[2020-02-21] MEDS ORDERED: LORAZEPAM 2MG/ML CPJ IV SCH (15:00)
[2020-02-21] MEDS ORDERED: DIPHENHYDRAMINE 50MG/ML VIAL IV ONE (15:00)
[2020-02-21 20:00] VITALS: BP 99/67
[2020-02-21] MEDS: HYDROMORPHONE HCL/PF 2MG/ML CPJ IV PRN (20:59)
[2020-02-22] MEDS: SODIUM CHLORIDE 0.9% 1,000 ML IV SCH
[2020-02-22] MEDS: HYDROMORPHONE HCL/PF 2MG/ML CPJ IV PRN (05:47)
[2020-02-22] MEDS: DIPHENHYDRAMINE 50MG/ML VIAL IV PRN ×2 (06:19→13:32)
[2020-02-22 08:00] VITALS: BP 110/78
[2020-02-22] MEDS: FAMOTIDINE 20MG/2ML VIAL IV SCH (09:12)
[2020-02-22 12:00] VITALS: BP 123/83
[2020-02-22] MEDS ORDERED: LORAZEPAM 2MG/ML CPJ IV SCH (12:45)
[2020-02-22 12:47] LABS: BASOPHILS % 0.5 % (0.0-2.0); EOSINOPHILS % 4.8 % (0.0-5.0); HEMATOCRIT. 30.6 % (36.0-48.0); HEMOGLOBIN. 10.4 g/dL (12.0-16.0); LYMPHOCYTES % 37.2 % (20.0-50.0); MEAN CORPUSCULAR HEMOGLOBIN 29.4 pg (28.0-32.0); MEAN CORPUSCULAR VOLUME 86.7 fL (81.0-99.0); MEAN PLATELET VOLUME 7.5 fl (7.4-10.4); MONOCYTES % 9.2 % (2.0-8.0); NEUTROPHILS % 48.3 % (40.0-76.0); PLATELET 194 x1000/uL (130-400); RED BLOOD CELL COUNT 3.53 mill/uL (4.2-5.4); RED CELL DISTRIBUTION WIDTH 14.2 % (11.6-14.6)
[2020-02-22 12:59] LABS: CHLORIDE 108 mEq/L (98-107)
[2020-02-22] MEDS ORDERED: HYDROMORPHONE HCL/PF 2MG/ML CPJ IV SCH (13:00)
[2020-02-22 13:50] VITALS: BP 118/80
== END 2020-02-22 14:24 | disposition home health service (06) | DRG 439 ==
LOC: ER 21:26 → EDBEDREQTM 02-21 01:10 → EDBEDREQ 02-21 01:10 → EDBEDREQSVC 02-21 01:10 → ENRESERV 02-21 01:37 → 6EST 02-21 02:18
PROVIDERS: ADMIT Internal Medicine; ATTEND Internal Medicine
DX: K85.90 Acute pancreatitis without necrosis or infection, unspecified (principal); K51.911 Ulcerative colitis, unspecified with rectal bleeding; E46 Unspecified protein-calorie malnutrition; F11.20 Opioid dependence, uncomplicated; K21.0 Gastro-esophageal reflux disease with esophagitis; K22.0 Achalasia of cardia; K86.1 Other chronic pancreatitis; Z96.89 Presence of other specified functional implants; D89.89 Other specified disorders involving the immune mechanism, not elsewhere classified; F41.9 Anxiety disorder, unspecified; K57.90 Diverticulosis of intestine, part unspecified, without perforation or abscess without bleeding; K64.9 Unspecified hemorrhoids; Z88.2 Allergy status to sulfonamides; Z76.5 Malingerer [conscious simulation]; Z87.11 Personal history of peptic ulcer disease; Z90.49 Acquired absence of other specified parts of digestive tract; Z98.82 Breast implant status; Z68.21 Body mass index [BMI] 21.0-21.9, adult; Z91.040 Latex allergy status; Z79.899 Other long term (current) drug therapy
CPT/HCPCS: 36415; 74176; 80053; 80305; 80320; 81003; 84484; 84703; 85025; 93005; 96374; 99285; J1170; J1200; J2060; J2270; J2405; J3490; J7030; G0480

== ENCOUNTER 2020-03-27 16:05 | Inpatient (IN) | payer MEDICARE, MEDICAID ==
[~2020-03-27] VITALS: Ht 165.1 cm; Wt 52.2 kg
[~2020-03-27 16:05] MED LIST changes: +LORA2TAB95 IV
[2020-03-27] MEDS ORDERED: SODIUM CHLORIDE 0.9% 1,000 ML IV ONE (17:26)
[2020-03-27 18:37] LABS: CLARITY URINE CLOUDY (CLEAR); COLOR URINE YELLOW (YELLOW); KETONES URINE NEGATIVE (NEGATIVE); LEUKOCYTE ESTERASE URINE NEGATIVE (NEGATIVE); NITRITE URINE NEGATIVE (NEGATIVE); OCCULT BLOOD URINE 3+ (NEGATIVE); PH URINE 5.5 (4.5-8.0); PROTEIN URINE NEGATIVE (NEGATIVE); SPECIFIC GRAVITY URINE 1.018 (1.005-1.030); UROBILINOGEN URINE 0.2 E.U./dL (0.2-1.0)
[2020-03-27 19:23] LABS: BASOPHILS % 0.7 % (0.0-2.0); EOSINOPHILS % 0.9 % (0.0-5.0); HEMATOCRIT. 35.5 % (36.0-48.0); HEMOGLOBIN. 11.7 g/dL (12.0-16.0); LYMPHOCYTES % 30.9 % (20.0-50.0); MEAN CORPUSCULAR HEMOGLOBIN 28.3 pg (28.0-32.0); MEAN CORPUSCULAR VOLUME 85.6 fL (81.0-99.0); MEAN PLATELET VOLUME 7.6 fl (7.4-10.4); MONOCYTES % 7.4 % (2.0-8.0); NEUTROPHILS % 60.1 % (40.0-76.0); PLATELET 259 x1000/uL (130-400); RED BLOOD CELL COUNT 4.15 mill/uL (4.2-5.4); RED CELL DISTRIBUTION WIDTH 14.7 % (11.6-14.6)
[2020-03-27 19:34] LABS: CHLORIDE 108 mEq/L (98-107)
[2020-03-27 19:38] LABS: PROTHROMBIN TIME 10.4 sec (9.6-11.0)
[2020-03-27 19:44] LABS: B-HCG QUANTITATIVE < 1 mIU/mL (<3)
[2020-03-27] MEDS ORDERED: ONDANSETRON HCL 4MG/2ML INJ IV ONE (19:45)
[2020-03-27] MEDS ORDERED: MORPHINE SULFATE 4 MG/ML CPJ (NOT FOR IM USE) IV ONE (19:45)
[2020-03-27 20:00] LABS: HCG SCREEN NEGATIVE
[2020-03-27] MEDS ORDERED: DIPHENHYDRAMINE 50MG/ML VIAL ONE (20:39)
[2020-03-27] MEDS ORDERED: LORAZEPAM 2MG/ML CPJ IV ONE (23:15)
[2020-03-28 00:24] VITALS: BP 107/66
[2020-03-28 00:30] VITALS: BP 107/66
[2020-03-28] MEDS ORDERED: DIPHENHYDRAMINE 50MG/ML VIAL IV PRN ×2 (01:15→09:15)
[2020-03-28] MEDS ORDERED: ONDANSETRON HCL 4MG/2ML INJ IV PRN (01:15)
[2020-03-28] MEDS ORDERED: LORAZEPAM 2MG/ML CPJ IV PRN (01:15)
[2020-03-28] MEDS: FAMOTIDINE 20MG/2ML VIAL IV SCH ×2 (01:29→10:29)
[2020-03-28] MEDS: HYDROMORPHONE HCL/PF 2MG/ML CPJ IV PRN ×2 (01:30→06:53)
[2020-03-28] MEDS: DEXT 5%/0.45% NACL KCL 10MEQ/L 1,000 ML IV SCH ×2 (03:45→13:00)
[2020-03-28 04:00] VITALS: BP 103/67
[2020-03-28 08:00] VITALS: BP 87/51
[2020-03-28] MEDS ORDERED: HYDROMORPHONE HCL/PF 2MG/ML CPJ IV PRN (09:15)
[2020-03-28 12:09] VITALS: BP 105/93
[2020-03-28] MEDS ORDERED: HYDROMORPHONE HCL/PF 2MG/ML CPJ IV SCH (13:15)
[2020-03-28 13:23] VITALS: BP 117/60
== END 2020-03-28 13:50 | disposition home or self-care (01) | DRG 392 ==
LOC: ER 16:05 → 8WST 22:08 → ENRESERV 23:08
PROVIDERS: ADMIT Internal Medicine; ATTEND Internal Medicine
DX: K21.9 Gastro-esophageal reflux disease without esophagitis (principal); K86.1 Other chronic pancreatitis; E87.8 Other disorders of electrolyte and fluid balance, not elsewhere classified; G43.909 Migraine, unspecified, not intractable, without status migrainosus; M19.90 Unspecified osteoarthritis, unspecified site; Z76.5 Malingerer [conscious simulation]; Z90.49 Acquired absence of other specified parts of digestive tract; Z98.82 Breast implant status; Z88.2 Allergy status to sulfonamides; Z88.6 Allergy status to analgesic agent; Z91.040 Latex allergy status; Z88.5 Allergy status to narcotic agent; Z88.8 Allergy status to other drugs, medicaments and biological substances; Z79.899 Other long term (current) drug therapy
CPT/HCPCS: 36415; 74176; 76830; 76856; 80053; 81003; 84702; 84703; 85025; 86850; 86870; 86900; 96374; 99285; J1170; J1200; J2060; J2270; J2405; J3490; J7030

== ENCOUNTER 2020-03-28 13:57 | Emergency (ER) | payer MEDICARE, MEDICAID ==
[~2020-03-28] VITALS: Ht 165.1 cm; Wt 52.0 kg
[2020-03-28 14:45] VITALS: BP 121/77
[2020-03-28] MEDS ORDERED: MAGNESIUM/ALUMINUM HYDROXIDE/SIMETHICONE 30ML UDC PO STA (14:46)
[2020-03-28] MEDS ORDERED: SODIUM CHLORIDE 0.9% 1,000 ML IV ONE (14:46)
[2020-03-28] MEDS ORDERED: VISCOUS LIDOCAINE 2% 15 ML UDC PO STA (14:46)
[2020-03-28] MEDS ORDERED: FAMOTIDINE 20MG/2ML VIAL IV STA (14:46)
== END 2020-03-28 15:06 | disposition left against medical advice (07) ==
LOC: ER 14:36
DX: R10.13 Epigastric pain (principal); F91.8 Other conduct disorders; K86.1 Other chronic pancreatitis; M32.9 Systemic lupus erythematosus, unspecified; F41.9 Anxiety disorder, unspecified; Z90.49 Acquired absence of other specified parts of digestive tract; Z88.5 Allergy status to narcotic agent; Z88.2 Allergy status to sulfonamides; Z88.8 Allergy status to other drugs, medicaments and biological substances; Z88.6 Allergy status to analgesic agent; Z91.040 Latex allergy status
CPT/HCPCS: 93005; 99283; J7030

== ENCOUNTER 2020-08-09 17:48 | Emergency (ER) | payer MEDICARE, MEDICAID ==
[~2020-08-09] VITALS: Ht 170.2 cm; Wt 57.0 kg
[~2020-08-09 17:48] MED LIST changes: +FAMO20TA8 MT
[2020-08-09] MEDS ORDERED: ACETAMINOPHEN 325MG TABLET PO STA (18:13)
[2020-08-09 18:40] LABS: BASOPHILS % 0.4 % (0.0-2.0); EOSINOPHILS % 1.4 % (0.0-5.0); HEMATOCRIT. 38.2 % (36.0-48.0); LYMPHOCYTES % 23.1 % (20.0-50.0); MEAN CORPUSCULAR HEMOGLOBIN 31.6 pg (28.0-32.0); MEAN CORPUSCULAR VOLUME 93.3 fL (81.0-99.0); MONOCYTES % 5.5 % (2.0-8.0); NEUTROPHILS % 69.6 % (40.0-76.0); RED CELL DISTRIBUTION WIDTH 14.7 % (11.6-14.6)
[2020-08-09 18:50] LABS: CHLORIDE 107 mEq/L (98-107)
[2020-08-09 19:00] LABS: CLARITY URINE CLEAR (CLEAR); COLOR URINE YELLOW (YELLOW); KETONES URINE NEGATIVE (NEGATIVE); LEUKOCYTE ESTERASE URINE NEGATIVE (NEGATIVE); NITRITE URINE NEGATIVE (NEGATIVE); OCCULT BLOOD URINE NEGATIVE (NEGATIVE); PH URINE 7.5 (4.5-8.0); PROTEIN URINE NEGATIVE (NEGATIVE); SPECIFIC GRAVITY URINE 1.008 (1.005-1.030); UROBILINOGEN URINE 0.2 E.U./dL (0.2-1.0)
[2020-08-09 19:12] LABS: MEAN PLATELET VOLUME 7.3 fl (7.4-10.4); PLATELET 174 x1000/uL (130-400)
[2020-08-09 21:30] VITALS: BP 136/76
== END 2020-08-09 22:00 | disposition home or self-care (01) ==
LOC: ER 17:48
DX: R10.9 Unspecified abdominal pain (principal); D64.9 Anemia, unspecified; Z90.49 Acquired absence of other specified parts of digestive tract; Z79.899 Other long term (current) drug therapy; Z88.0 Allergy status to penicillin; Z88.2 Allergy status to sulfonamides; Z88.6 Allergy status to analgesic agent
CPT/HCPCS: 36415; 74176; 80053; 81003; 81025; 85025; 93005; 99285

== ENCOUNTER 2020-11-13 16:16 | Emergency (ER) | payer MEDICARE, MEDICAID ==
[~2020-11-13] VITALS: Ht 165.1 cm; Wt 59.0 kg
[2020-11-13] MEDS ORDERED: MORPHINE SULFATE 4 MG/ML CPJ (NOT FOR IM USE) IV STA (17:49)
[2020-11-13] MEDS ORDERED: ONDANSETRON HCL 4MG/2ML INJ IV STA (17:49)
[2020-11-13] MEDS ORDERED: SODIUM CHLORIDE 0.9% 1,000 ML IV ONE (18:00)
[2020-11-13 18:02] LABS: COLOR URINE YELLOW (YELLOW); KETONES URINE NEGATIVE (NEGATIVE); LEUKOCYTE ESTERASE URINE NEGATIVE (NEGATIVE); NITRITE URINE NEGATIVE (NEGATIVE); OCCULT BLOOD URINE 2+ (NEGATIVE); PROTEIN URINE NEGATIVE (NEGATIVE); SPECIFIC GRAVITY URINE 1.028 (1.005-1.030); UROBILINOGEN URINE 0.2 E.U./dL (0.2-1.0)
[2020-11-13 18:03] LABS: CLARITY URINE HAZY (CLEAR)
[2020-11-13 18:40] LABS: BASOPHILS % 0.4 % (0.0-2.0); HEMATOCRIT. 33.9 % (36.0-48.0); LYMPHOCYTES % 31.6 % (20.0-50.0); MEAN CORPUSCULAR HEMOGLOBIN 32.6 pg (28.0-32.0); MEAN PLATELET VOLUME 6.8 fl (7.4-10.4); MONOCYTES % 6.8 % (2.0-8.0); NEUTROPHILS % 57.2 % (40.0-76.0); PLATELET 243 x1000/uL (130-400); RED BLOOD CELL COUNT 3.69 mill/uL (4.2-5.4)
[2020-11-13 18:46] LABS: CHLORIDE 109 mEq/L (98-107)
[2020-11-13 18:49] LABS: PROTHROMBIN TIME 10.3 sec (9.6-11.0)
[2020-11-13 18:51] LABS: HCG SCREEN NEGATIVE
[2020-11-13] MEDS ORDERED: DIPHENHYDRAMINE 50MG/ML VIAL IV ONE (20:00)
[2020-11-13] MEDS ORDERED: HYDROCODONE/ACETAMINOPHEN 5/325MG TABLET PO ONE (20:30)
[2020-11-13] MEDS ORDERED: MORPHINE SULFATE 2 MG/ML CPJ (NOT FOR IM USE) IV ONE (21:00)
[2020-11-13 21:04] VITALS: BP 112/88
== END 2020-11-13 21:08 | disposition home or self-care (01) ==
LOC: ER 16:16
DX: R10.9 Unspecified abdominal pain (principal); E86.0 Dehydration; D64.9 Anemia, unspecified; G43.909 Migraine, unspecified, not intractable, without status migrainosus; Z90.49 Acquired absence of other specified parts of digestive tract; Z98.890 Other specified postprocedural states; Z79.899 Other long term (current) drug therapy; Z88.2 Allergy status to sulfonamides; Z88.0 Allergy status to penicillin; Z88.6 Allergy status to analgesic agent
CPT/HCPCS: 36415; 74176; 80053; 81003; 83605; 83690; 84703; 85025; 85610; 87040; 87086; 93005; 96361; 96374; 96375; 96376; 99285; J1200; J2270; J2405; J7030

== ENCOUNTER 2020-11-20 13:22 | Emergency (ER) | payer MEDICARE, MEDICAID ==
[~2020-11-20] VITALS: Ht 167.6 cm; Wt 60.0 kg
[2020-11-20] MEDS ORDERED: SODIUM CHLORIDE 0.9% 1,000 ML IV ONE (15:00)
[2020-11-20] MEDS ORDERED: ONDANSETRON HCL 4MG/2ML INJ IV NR (15:00)
[2020-11-20] MEDS ORDERED: FAMOTIDINE 20MG/2ML VIAL IV NR (15:00)
[2020-11-20] MEDS ORDERED: MORPHINE SULFATE 4 MG/ML CPJ (NOT FOR IM USE) IV NR (15:00)
[2020-11-20 16:11] LABS: BASOPHILS % 0.4 % (0.0-2.0); HEMATOCRIT. 36.4 % (36.0-48.0); HEMOGLOBIN. 12.6 g/dL (12.0-16.0); MEAN CORPUSCULAR HEMOGLOBIN 31.8 pg (28.0-32.0); MEAN CORPUSCULAR VOLUME 92.2 fL (81.0-99.0); MEAN PLATELET VOLUME 6.5 fl (7.4-10.4); NEUTROPHILS % 64.6 % (40.0-76.0); PLATELET 226 x1000/uL (130-400); RED BLOOD CELL COUNT 3.95 mill/uL (4.2-5.4)
[2020-11-20 16:15] LABS: CHLORIDE 108 mEq/L (98-107)
[2020-11-20 16:25] LABS: PROTHROMBIN TIME 10.8 sec (9.6-11.0)
[2020-11-20 16:26] LABS: HCG SCREEN NEGATIVE
[2020-11-20] MEDS ORDERED: DIPHENHYDRAMINE 50MG/ML VIAL IV ONE (17:00)
[2020-11-20] MEDS ORDERED: MORPHINE SULFATE 4 MG/ML CPJ (NOT FOR IM USE) IV ONE (18:00)
[2020-11-20] MEDS ORDERED: POLY17PO3 MT (19:07)
[2020-11-20 19:17] VITALS: BP 104/72
[2020-11-20] MEDS ORDERED: MAGNESIUM CITRATE 300ML SOLUTION PO NR (19:30)
[2020-11-20] MEDS ORDERED: SCOP1PAT10 TP (19:40)
== END 2020-11-20 20:15 | disposition home or self-care (01) ==
LOC: ER 13:22
DX: R10.13 Epigastric pain (principal); K59.00 Constipation, unspecified; R11.0 Nausea; R00.0 Tachycardia, unspecified; M32.9 Systemic lupus erythematosus, unspecified; N20.0 Calculus of kidney; Z87.19 Personal history of other diseases of the digestive system; Z90.49 Acquired absence of other specified parts of digestive tract; Z79.899 Other long term (current) drug therapy; Z88.2 Allergy status to sulfonamides; Z88.0 Allergy status to penicillin; Z88.6 Allergy status to analgesic agent; Z91.040 Latex allergy status
CPT/HCPCS: 36415; 74176; 80053; 83690; 84703; 85025; 85610; 93005; 96361; 96374; 96375; 96376; 99285; J1200; J2270; J2405; J3490